=== PATIENT | female | born 1950 | race Caucasian/White ===

== ENCOUNTER 2022-11-21 12:23 | Outpatient (CLI) | payer OTHER, SELFPAY ==
--- NOTE | 2022-11-21 | MM_ITS ---
WS: [id number] BILATERAL 3D TOMOSYNTHESIS DIGITAL SCREENING MAMMOGRAPHY WITH CAD CLINICAL INFORMATION: ANNUAL SCREENING HISTORY: Screening mammogram. No current complaints. COMPARISON: 2020 TECHNIQUE: Bilateral CC and MLO views. FINDINGS: The breasts are composed of heterogeneous fibroglandular density tissue, which can limit the detectio n of small underlying mass lesions. No suspicious mass, asymmetry, calcifications, or architectural d istortion. No evidence of malignancy. Incidental punctate and lucent centered calcifications. Vascula r calcification. IMPRESSION: MM/[place] [id number] BI-RADS: 2-Benign FOLLOW UP: 1 Year Follow-up Recommend return to annual screening mammography.
== END 2022-11-21 12:24 | disposition home or self-care (01) ==
PROVIDERS: PCP Family Medicine; Visit Provider Family Medicine
DX: Z12.31 Encounter for screening mammogram for malignant neoplasm of breast (principal)
CPT/HCPCS: 77063; 77067

== ENCOUNTER 2023-04-07 10:26 | Emergency (ER) | payer MEDICARE, SELFPAY ==
[2023-04-07 11:01] VITALS: BP 104/67; PULSE 66; RESP 12; TEMP 36.5; O2SAT 98; BMI 20.7
[2023-04-07 11:39] VITALS: BP 104/67; PULSE 66; RESP 14; O2SAT 99
--- NOTE | 2023-04-07 11:58 | XRR_ITS ---
PROCEDURE INFORMATION: Exam: XR Lumbosacral Spine Exam date and time: 04/07/2023 12:14 PM Age: 72 years old Clinical indication: Injury or trauma; Patient HX: Upper/lower back/tailbone/rt knee pain post fall; No previous injuries or surg TECHNIQUE: Imaging protocol: Radiologic exam of the lumbosacral spine. Views: 2 or 3 views. COMPARISON: CR XR thoracic spine 3V* [id number] 04/07/2023 12:14 PM FINDINGS: Bones/joints: Compression fracture of T12 vertebral body. Chronic multilevel endplate sclerosis and space disc narrowing most pronounced at L3 through S1. Facet hypertrophy and bony enumeration at L4-L5, and L5-S1 facets. There is normal alignment. Mild degenerative changes of the bilateral hip joints. Soft tissues: Unremarkable. XR/XR lumbar spine 2-3V* [id number] IMPRESSION: 1. Compression fracture of T12 vertebral body. Correlate with point tenderness for acuity. 2. Facet arthropathy of the lower lumbar spine.
--- NOTE | 2023-04-07 11:58 | XRR_ITS ---
PROCEDURE INFORMATION: Exam: XR Thoracic Spine Exam date and time: 04/07/2023 12:14 PM Age: 72 years old Clinical indication: Injury or trauma; Patient HX: Upper/lower back/tailbone/rt knee pain post fall; No previous injuries or surg TECHNIQUE: Imaging protocol: Radiologic exam of the thoracic spine. Views: 3 views. COMPARISON: CR XR lumbar spine 2-3V* [id number] 04/07/2023 12:14 PM FINDINGS: Bones/joints: Compression fracture of T12 vertebral body. Chronic multilevel degenerative changes. Normal alignment. Soft tissues: Unremarkable. XR/XR thoracic spine 3V* [id number] IMPRESSION: Compression fracture of T12 vertebral body.
--- NOTE | 2023-04-07 11:58 | XRR_ITS ---
PROCEDURE INFORMATION: Exam: XR Right Knee Exam date and time: 04/07/2023 12:14 PM Age: 72 years old Clinical indication: Injury or trauma; Patient HX: Upper/lower back/tailbone/rt knee pain post fall; No previous injuries or surg TECHNIQUE: Imaging protocol: Radiologic exam of the right knee. Views: 3 views. COMPARISON: No relevant prior studies available. FINDINGS: Bones/joints: No acute fracture. Mild joint space narrowing in the medial tibiofemoral compartment of the knee. There is subchondral sclerosis, without valgus malalignment Soft tissues: Normal. No joint effusion. XR/XR knee RT 3V* [id number] IMPRESSION: [id number] tricompartmental osteoarthritis of the right knee.
--- NOTE | 2023-04-07 11:58 | CTR_ITS ---
PROCEDURE INFORMATION: Exam: CT Head Without Contrast Exam date and time: 04/07/2023 12:39 PM Age: 72 years old Clinical indication: Injury or trauma; Fall; Blunt trauma (contusions or hematomas); Additional info: Fall/trauma TECHNIQUE: Imaging protocol: Computed tomography of the head without contrast. Radiation optimization: All CT scans at this facility use at least one of these dose optimization techniques: automated exposure control; mA and/or kV adjustment per patient size (includes targeted exams where dose is matched to clinical indication); or iterative reconstruction. COMPARISON: CT cervical spin wo con* [id number] 04/07/2023 12:39 PM RADIATION DOSE METRICS: Total DLP (mGy-cm): 1073.7 FINDINGS: Brain: No hemorrhage, mass effect or brain herniation. Chronic right temporal encephalomalacia with compensatory dilatation of the right ventricular anterior horn. Cerebral ventricles: No ventriculomegaly. Paranasal sinuses: Visualized sinuses are unremarkable. No fluid levels. Mastoid air cells: Visualized mastoid air cells are well aerated. Bones/joints: Unremarkable. No acute fracture. Soft tissues: Unremarkable. CT/CT head wo con* [id number] IMPRESSION: No acute intracranial abnormality.
--- NOTE | 2023-04-07 11:58 | CTR_ITS ---
PROCEDURE INFORMATION: Exam: CT Cervical Spine Without Contrast Exam date and time: 04/07/2023 12:39 PM Age: 72 years old Clinical indication: Injury or trauma; Fall; Blunt trauma; Additional info: Trauma/fall TECHNIQUE: Imaging protocol: Computed tomography of the cervical spine without contrast. Radiation optimization: All CT scans at this facility use at least one of these dose optimization techniques: automated exposure control; mA and/or kV adjustment per patient size (includes targeted exams where dose is matched to clinical indication); or iterative reconstruction. COMPARISON: CT head wo con* [id number] 04/07/2023 12:39 PM RADIATION DOSE METRICS: Total DLP (mGy-cm): 316.2 FINDINGS: Bones/joints: No acute fracture. Normal alignment. No significant disc bulge or herniation. No severe spinal canal stenosis. Chronic marked degenerative disc and facet changes throughout the cervical spine with multilevel foramina compromise. Lungs: Lung apices are normal. Soft tissues: Unremarkable. CT/CT cervical spin wo con* [id number] IMPRESSION: No acute findings.
--- NOTE | 2023-04-07 14:00 | W.ED.FALL ---
HPI - Fall General: Chief Complaint: Fall Stated Complaint: fall, lower back pain Time Seen by Provider: 04/07/23 11:52 History of Present Illness: 72-year-old female presents emergency department with complaints of back pain. She states she was attempting to step up into her pickup truck when she had a accidental slip and fell backwards onto her back. She states she does have a history of having back surgery in her back and states that she has back pain to her lower back and right knee. She rates her back pain is a 5 out of 10 and her right knee pain as a 2 out of 10 and aching. She states that she did not hit her head that she knows of when she fell. She denies loss of consciousness. She denies urinary retention or incontinence or bowel retention or incontinence. She denies paresthesia or paralysis. Review of Systems General: Reports: 10 or more systems reviewed and unremarkable except in HPI and below Musc: Reports: back pain, extremity pain, joint pain and joint stiffness Physical Exam Narrative: EXAM NARRATIVE: Constitutional: the patient appears well nourished and with normal development. Vital signs reviewed as documented. HENMT: Normocephalic, atraumatic. External ears normal appearance without drainage. Nose without drainage, normal appearance. Mucus membranes moist. Neck is supple, No jugular venous distension, trachea is midline, no appreciable carotid bruits. No lymphadenopathy. No meningeal signs. Flexion, extension and lateral rotation is without pain. Eyes: Pupils are equal, round, reactive to light and accommodation. No scleral icterus. Extra-ocular movement are intact. Thorax is symmetrical and with equal rise and fall with respirations. Resp: Lungs are clear to auscultation. No wheezes, rales, crackles or ronchi at present. Cardio: Regular rate and rhythm. Positive S1, S2. No appreciable murmurs, rubs or gallops. GI: Abdominal exam reveals normal bowel sounds to all quadrants. No organomegaly. No obvious palpable masses noted. No hepatomegally appreciated. Soft, non-tender to palpation. Extremity: Extremities are non-edematous and both femoral and pedal pulses are 2+ and equal bilaterally. Moves all extremities well, sensation in all extremities. There is no ballotable edema to the right knee. Neuro: Alert and oriented x4, person, place, time and situation. Cranial nerves II through XII are grossly intact, there is no focal neurological deficits that I can appreciate at present. Motor strength in the upper and lower extremities are equal and bilateral 5/5. Psych: Cooperative, calm, normal thought process, appropriate judgment. Skin: No lesions, rashes. No gross abnormalities noted. Back: Symmetrical, no obvious deformity, No CVA tenderness. No crepitus that I can appreciate at present, no obvious step-offs, she is tender to palpation to the T11-T12 area. Course Vital Signs: Vital signs: Vital Signs Temperature 97.7 F 04/07/23 11:01 Pulse Rate 66 04/07/23 11:39 Respiratory Rate 14 04/07/23 11:39 Blood Pressure 104/67 04/07/23 11:39 Pulse Oximetry 99 04/07/23 11:39 Oxygen Delivery Me thod Room Air 04/07/23 11:39 MDM - Fall Medical Decision Making Physical exam completed and documented given the patient's previous back surgery I will obtain lumbar plain film, thoracic plain film and right knee plain film for evaluation. Given her advanced age and the distance that she fell I will obtain a CT scan of her head and neck to evaluate for intracranial injury. After reviewing the radiographic examination I will provide the patient with Toradol intramuscular injection for her pain control as well as written prescriptions. I did have an extensive discussion with the patient regarding follow-up with her primary care provider and also the orthopedic physician both to discuss potential treatment for her T12 compression fracture. Lab Data Radiology Impressions Cervical Spine CT 04/07/23 11:58 IMPRESSION: No acute findings. Head CT 04/07/23 11:58 IMPRESSION: No acute intracranial abnormality. Knee X-Ray 04/07/23 11:58 IMPRESSION: [id number] tricompartmental osteoarthritis of the right knee. Lumbar Spine X-Ray 04/07/23 11:58 IMPRESSION: 1. Compression fracture of T12 vertebral body. Correlate with point tenderness for acuity. 2. Facet arthropathy of the lower lumbar spine. Thoracic Spine X-Ray 04/07/23 11:58 IMPRESSION: Compression fracture of T12 vertebral body. All radiology interpretation(s) finalized by discharge Discharge Plan Discharge Patient Disposition: Home Clinical Impression: Acute pain of right knee T12 compression fracture Qualifiers: Encounter type: initial encounter Qualified Code(s): S22.080A - Wedge compression fracture of T11-T12 vertebra, initial encounter for closed fracture Accidental fall Qualifiers: Encounter type: initial encounter Qualified Code(s): W19.XXXA - Unspecified fall, initial encounter Osteoarthritis of right knee Qualifiers: Osteoarthritis type: unspecified Qualified Code(s): M17.11 - Unilateral primary osteoarthritis, right knee Condition: Stable Prescriptions: New cyclobenzaprine 10 mg tablet 10 mg PO Q12H Qty: 14 0RF naproxen 500 mg tablet 500 mg PO Q12H PRN (Reason: pain) Qty: 20 0RF No Action clonazepam 0.5 mg tablet 0.5 mg PO Q8H PRN (Reason: anxiety) Qty: 21 0RF Discharge Orders: Discharge ED (Routine); Ordered 04/07/23 Ordered By: Mendoza Felipe Referrals: Arben Yeager MD [Primary Care Provider] - Discharge Diet: Advance as tolerated Discharge Activity: Resume usual activity Patient Instructions: Opioid Safety, Pain Management Activity Restrictions/Additional Instructions: Activity Restrictions/Additional Instructions: Thank you for choosing [facility] for your healthcare needs today. Please realize that you were seen in the Emergency Department and that we are providing you with an emergency medical screening exam and this may not be a complete and all inclusive of all the testing and or medical work-up that you may need to determine your ailment or severity of your illness. It is very important that you follow-up as instructed with your Primary care provider or Specialist for additional evaluation and to discuss your medical treatment plan. You may return to the Emergency Department should you have concerns or if your condition changes or worsens in any way. You have been provided the office contact information for a Specialist Physician that sees patients of all ages and may be able to provide additional evaluation and treatment for your bone and joint pain. [facility] Dr. 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
[2023-04-07] MEDS: ketorolac 60 mg/2 mL INJ IM (14:15)
[2023-04-07 14:36] VITALS: BP 104/67; PULSE 66; RESP 14; TEMP 36.5; O2SAT 99
== END 2023-04-07 14:37 | disposition home or self-care (01) ==
PROVIDERS: Emergency Provider Internal Medicine; PCP Family Medicine
DX: S22.080A Wedge compression fracture of T11-T12 vertebra, initial encounter for closed fracture (principal); M17.11 Unilateral primary osteoarthritis, right knee; W01.0XXA Fall on same level from slipping, tripping and stumbling without subsequent striking against object, initial encounter
CPT/HCPCS: 70450; 72072; 72100; 72125; 73562; 96372; 99284; J1885

== ENCOUNTER 2023-05-14 18:26 | Emergency (ER) | payer MEDICARE, SELFPAY ==
--- NOTE | 2023-05-14 18:27 | XRR_ITS ---
PROCEDURE INFORMATION: Exam: XR Chest Exam date and time: 05/14/2023 7:01 PM Age: 72 years old Clinical indication: Cough and fever; Additional info: Syncope TECHNIQUE: Imaging protocol: Radiologic exam of the chest. Views: 1 view. COMPARISON: CT cervical spin wo con* [id number] 04/07/2023 12:39 PM FINDINGS: Lungs: Unremarkable. No consolidation or mass. Pleural spaces: Unremarkable. No pleural effusion. No pneumothorax. Heart/Mediastinum: Unremarkable. No cardiomegaly. Bones/joints: Unremarkable. XR/XR chest 1V portable [id number] IMPRESSION: No acute findings.
--- NOTE | 2023-05-14 18:27 | ECG_ITS ---
[facility] Test Date: 2023-05-14 Pat Name: Cindi Gonzalez Department: Room: Gender: Female [employer] Hand: : 1950 Requested By: Jonah Zimmer Order Number: [id number] Katrina MD: Prabhjot Pichardo M.D. Measurements Intervals [place] Rate: 66 P: 71 IN: 228 QRS: 56 QRSD: 74 T: 70 QT: 364 QTc: 383 Interpretive Statements SINUS RHYTHM WITH FIRST DEGREE AV BLOCK No previous ECG available for comparison Electronically Signed On 05-14-2023 21:28:27 CDT by Prabhjot Pichardo M.D. [id number]
[2023-05-14 18:43] VITALS: BP 102/68; PULSE 65; RESP 18; TEMP 36.6; O2SAT 99; BMI 21.1
--- NOTE | 2023-05-14 18:56 | ED_ITS ---
HPI - General Adult 2 General: Chief complaint: Upper Respiratory Infection Stated complaint: Flu Like symptoms Time Seen by Provider: 05/14/23 18:29 Source: patient Mode of arrival: ambulatory Limitations: no limitations History of Present Illness: 72-year-old female states for last 2 to 3 days she has had fatigue along with some bodyaches and diaphoresis states she went to go to the bathroom last night and felt nauseous had a syncopal event on the toilet. She denies any chest pain denies any headache denies any diarrhea. Associated symptoms: Reports malaise, nausea and syncope; Deny chest pain, dyspnea, headache(s), rash or vomiting Review of Systems 2 Const: Reports: chills, body aches and malaise; Denies: fever(s) or change in appetite Eyes: Denies: blurry vision or eye discomfort ENMT: Denies: throat pain or dental pain Card: Reports: syncope; Denies: chest pain Resp: Denies: dyspnea GI: Reports: nausea; Denies: abdominal pain, vomiting or diarrhea : Denies: dysuria Musc: Denies: neck pain or back pain Skin/Breast: Denies: rash Neuro: Denies: headache(s) Physical Exam 2 Const: COMMON NORMALS: no acute distress, patient oriented x3 and healthy appearing HENMT: COMMON NORMALS: normocephalic and atraumatic HEAD & SCALP: n ormocephalic and atraumatic Eye: COMMON NORMALS: Equal, round and reactive pupils present and EOMs intact bilaterally PUPIL: Yes Equal, round and reactive pupils present Neck/C-Spine: COMMON NORMALS: full ROM and supple Chest: COMMONS NORMALS: normal inspection of the chest and normal palpation of entire chest wall Resp: COMMON NORMALS: normal respiratory effort, No retractions, No use of accessory muscles and clear to auscultation bilaterally AUSCULTATION: clear to auscultation bilaterally Cardio: COMMON NORMALS: regular rate, regular rhythm and No murmurs present (Cardio) RATE: regular rate RHYTHM: regular rhythm GI: COMMON NORMALS: Normal to inspection, nondistended, normoactive bowel sounds present, Soft to palpation, non-tender and no masses PALPATION: Yes Soft to palpation Extremity: COMMON NORMALS: normal to inspection and full ROM Neuro: COMMON NORMALS: patient oriented x3, moves all extremities and no focal motor deficits Psych: COMMON NORMALS: mental status grossly normal, Normal thought process present and cooperative THOUGHT PROCESS: Normal thought process present Skin: COMMON NORMALS: no rashes or lesions noted and no wounds GENERAL SKIN EXAM: no rashes or lesions noted Course 2 Vital Signs: Vital signs: Vital Signs Temperature 97.8 F 05/14/23 18:43 Pulse Rate 65 05/14/23 18:43 Respiratory Rate 18 05/14/23 18:43 Blood Pressure 102/68 05/14/23 18:43 Pulse Oximetry 99 05/14/23 18:43 MDM - General Adult Medical Decision Making Patient presents here with bodyaches and fatigue she does have a UTI is likely causing her symptoms blood work here is normal white count is normal no signs of severe infection her troponin EKG here are normal as well. X-rays normal we will place her on Keflex she is follow-up with PCP and return if worsening she understands agrees to plan Medical Records I reviewed the patient's medical records. Lab Data I reviewed the patient's lab results. 05/14/23 18:58 05/14/23 18:58 Radiology Impressions Chest X-Ray 05/14/23 18:27 IMPRESSION: No acute findings. Laboratory Results WBC 4.35 10^3/uL (3.29-11.43) 05/14/23 18:58 RBC 4.60 10^6/uL (3.85-5.65) 05/14/23 18:58 Hgb 13.90 g/dL (11.27-16.99) 05/14/23 18:58 Hct 42.2 % (36-47) 05/14/23 18:58 MCV 91.7 fl (85-98) 05/14/23 18:58 MCH 30.2 pg (27-33) 05/14/23 18:58 MCHC 32.9 g/dL (30-55) 05/14/23 18:58 RDW 13.5 % (12.1-15.1) 05/14/23 18:58 Plt Count 253 10^3/cmm (157-399) 05/14/23 18:58 MPV 9.6 fL (7.4-10.4) 05/14/23 18:58 Neut % (Auto) 51.7 % 05/14/23 18:58 Lymph % (Auto) 38.4 % 05/14/23 18:58 [place] % (Auto) 9.0 % 05/14/23 18:58 Eos % (Auto) 0.0 % 05/14/23 18:58 Baso % (Auto) 0.7 % 05/14/23 18:58 Neut # (Auto) 2.25 10^3/uL (1.8-7.7) 05/14/23 18:58 Lymph # (Auto) 1.7 10^3/uL (0.8-4.8) 05/14/23 18:58 [place] # (Auto) 0.4 10^3/uL (0.2-0.9) 05/14/23 18:58 Eos # (Auto) 0.0 10^3/uL (0.0-0.8) 05/14/23 18:58 Baso # (Auto) 0.0 10^3/uL (0.0-0.1) 05/14/23 18:58 Nucleated RBC % (auto) 0 % 05/14/23 18:58 Nucleated RBCs # 0.0 /100WBC 05/14/23 18:58 PT 12.00 SECONDS (12.1-14.9) L 05/14/23 19:48 INR 0.86 (0.8-1.2) 05/14/23 19:48 Sodium 141 mmol/L (136-145) 05/14/23 18:58 Potassium 4.1 mmol/L (3.5-5.1) 05/14/23 18:58 Chloride 102 mmol/L (98-107) 05/14/23 18:58 Carbon Dioxide 27 mmol/L (22-29) 05/14/23 18:58 Anion Gap 16.1 (5-19) 05/14/23 18:58 BUN 14 mg/dL (8-23) 05/14/23 18:58 Creatinine 0.7 mg/dL (0.5-0.9) 05/14/23 18:58 GFR Calculation Not Reportable 05/14/23 18:58 Glucose 97 mg/dL (65-115) 05/14/23 18:58 Calculated Osmolality 292 mOsm/kg (285-295) 05/14/23 18:58 Calcium 10.2 mg/dL (8.5-10.5) 05/14/23 18:58 Total Bilirubin 0.2 mg/dL (0.15-1.2) 05/14/23 18:58 AST 19 U/L (0-32) 05/14/23 18:58 ALT 13 U/L (0-33) 05/14/23 18:58 Alkaline Phosphatase 95 U/L (35-105) 05/14/23 18:58 Troponin T Baseline 7 ng/L (0-10) 05/14/23 18:58 Total Protein 7.2 g/dL (6.6-8.7) 05/14/23 18:58 Albumin 4.7 g/dL (3.5-5.2) 05/14/23 18:58 Globulin 2.5 g/dL (1.3-4.6) 05/14/23 18:58 Lipase 33 U/L (13-60) 05/14/23 18:58 Urine Color Yellow (Yellow) 05/14/23 19:00 Urine Appearance Cloudy (CLEAR) A 05/14/23 19:00 Urine pH 7 (5-7) 05/14/23 19:00 Ur Specific [place] 1.010 (1.005-1.030) 05/14/23 19:00 Urine Protein Neg (Negative) 05/14/23 19:00 Urine Glucose (UA) Norm (Normal) 05/14/23 19:00 Urine Ketones Negative (Negative) 05/14/23 19:00 Urine Blood Neg (Negative) 05/14/23 19:00 Urine Nitrate Positive (Negative) H 05/14/23 19:00 Urine Bilirubin Neg (Negative) 05/14/23 19:00 Urine Urobilinogen Norm mg/dL (Negative) 05/14/23 19:00 Ur Leukocyte Esterase 2+ (Negative) H 05/14/23 19:00 Urine RBC 0-4 /hpf (0-2) H 05/14/23 19:00 Urine WBC 40-55 /hpf (0-5) H 05/14/23 19:00 Ur Squamous Epith Cells 5-10 /hpf (0-5) H 05/14/23 19:00 Ur Transition Epith Cell 0-4 /hpf 05/14/23 19:00 Amorphous Sediment Not Reportable 05/14/23 19:00 Urine Bacteria 3+ /hpf (NONE) H 05/14/23 19:00 Urine Mucus Trace /hpf 05/14/23 19:00 Ur Oval Fat Bodies 1+ /hpf 05/14/23 19:00 Influenza Type A Ag negative (Negative) 05/14/23 19:20 Influenza Type B Ag negative (Negative) 05/14/23 19:20 SARS-CoV-2 Ag (Rapid) negative (Negative) 05/14/23 19:20 All radiology interpretation(s) finalized by discharge EKG Data EKG 1: I personally reviewed and interpreted this EKG as follows: EKG interpretation date: 05/14/23 EKG interpretation time: 18:50 Interpretation: nsr hr [address] or t wave abnormalities qrs 74 qtc 378 Computer generated interpretation: Chest X-Ray 05/14/23 18:27 IMPRESSION: No acute findings. Discharge Plan Discharge Patient Disposition: Home Clinical Impression: Acute cystitis, Syncope Condition: Stable Prescriptions: New cephalexin 500 mg capsule 500 mg PO TID 7 Days Qty: 21 0RF ondansetron 4 mg tablet,disintegrating 4 mg PO Q6H PRN (Reason: nausea and vomiting) Qty: 14 0RF No Action clonazepam 0.5 mg tablet 0.5 mg PO Q8H PRN (Reason: anxiety) Qty: 21 0RF cyclobenzaprine 10 mg tablet 10 mg PO Q12H Qty: 14 0RF naproxen 500 mg tablet 500 mg PO Q12H PRN (Reason: pain) Qty: 20 0RF Discharge Orders: Discharge ED (Routine); Ordered 05/14/23 Ordered By: Jonah Zimmer Referrals: Arben Yeager MD [Primary Care Provider] - 1-3 days Discharge Diet: Advance as tolerated Discharge Activity: Resume usual activity Patient Instructions: Urinary Tract Infection in Women (ED), Syncope (ED) Coding Level of Care 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
[2023-05-14 19:06] LABS: Basophils % 0.7 %; Hematocrit 42.2 % (36-47); Lymphocytes # 1.7 10^3/uL (0.8-4.8); Lymphocytes % 38.4 %; Mean Corpuscular HGB Conc 32.9 g/dL (30-55); Mean Corpuscular Hemoglobin 30.2 pg (27-33); Mean Corpuscular Volume 91.7 fl (85-98); Mean Platelet Volume 9.6 fL (7.4-10.4); Monocytes # 0.4 10^3/uL (0.2-0.9); Neutrophils # 2.25 10^3/uL (1.8-7.7); Neutrophils % 51.7 %; Nucleated Red Blood Cells % 0 %; Platelet Count 253 10^3/cmm (157-399); Red Cell Distribution Width 13.5 % (12.1-15.1); White Blood Count 4.35 10^3/uL (3.29-11.43)
[2023-05-14] MEDS: sodium chloride 0.9% 1,000 ML 999 ML IV (19:17)
[2023-05-14 19:37] LABS: Troponin(5th) Baseline 7 ng/L (0-10)
[2023-05-14 19:39] LABS: Alanine Aminotransferase 13 U/L (0-33); Albumin Level 4.7 g/dL (3.5-5.2); Alkaline Phosphatase 95 U/L (35-105); Anion Gap 16.1 (5-19); Aspartate Amino Transferase 19 U/L (0-32); Blood Urea Nitrogen 14 mg/dL (8-23); Calcium 10.2 mg/dL (8.5-10.5); Carbon Dioxide 27 mmol/L (22-29); Chloride 102 mmol/L (98-107); Creatinine Clr Calc Pharmacy 55.3282; Globulin 2.5 g/dL (1.3-4.6); Glucose 97 mg/dL (65-115); Lipase 33 U/L (13-60); Osmolality Calculated 292 mOsm/kg (285-295); Potassium 4.1 mmol/L (3.5-5.1); Sodium 141 mmol/L (136-145); Total Bilirubin 0.2 mg/dL (0.15-1.2); Total Protein 7.2 g/dL (6.6-8.7)
[2023-05-14 19:48] LABS: Influenza A by IFA negative (Negative); Influenza B by IFA negative (Negative)
[2023-05-14 19:49] LABS: SARS Covid-2 Antigen negative (Negative)
[2023-05-14 20:05] LABS: INR 0.86 (0.8-1.2)
[2023-05-14 20:10] LABS: Add Urine Microscopic? YES; Bilirubin Urine Neg (Negative); Blood Urine Neg (Negative); Glucose Urine UA Norm (Normal); Ketones Urine Negative (Negative); Leukocyte Esterase Urine 2+ (Negative); Nitrate Urine Positive (Negative); Protein Urine Neg (Negative); Urine Appearance Cloudy (CLEAR); Urine Color Yellow (Yellow); Urobilinogen Urine Norm (Negative); pH Urine 7 (5-7)
[2023-05-14 20:13] LABS: RBC Urine 0-4 /hpf (0-2); WBC Urine 40-55 /hpf (0-5)
[2023-05-14 20:14] LABS: Add Urine Culture? Yes; Bacteria Urine 3+ /hpf; Mucus Urine TRACE /hpf; Oval Fat Bodies Urine 1+ /hpf; Transitional Epi Cells Urine 0-4 /hpf
[2023-05-14] MEDS: cefTRIAXone 1,000 MG in sodium chloride 0.9% (plus) 50 ML 100 MG IV (20:30)
[2023-05-14 20:46] VITALS: BP 124/75; PULSE 71; RESP 16; O2SAT 96
[2023-05-14 20:54] VITALS: BP 111/57; PULSE 75; RESP 15; O2SAT 98
== END 2023-05-14 20:58 | disposition home or self-care (01) ==
PROVIDERS: Emergency Provider Emergency Medicine; PCP Family Medicine
DX: R55 Syncope and collapse (principal); N30.00 Acute cystitis without hematuria; Z11.52 Encounter for screening for COVID-19
CPT/HCPCS: 36415; 71045; 80053; 81001; 83690; 84484; 85025; 85610; 87077; 87086; 87186; 87426; 87804; 93005; 96365; 99285; J0696; J7030

== ENCOUNTER 2023-05-21 12:46 | Outpatient (CLI) | payer MEDICARE, SELFPAY ==
--- NOTE | 2023-05-21 12:52 | XR_ITS ---
WS: [id number] SCREENING DEXA SCAN [employer] CLINICAL INFORMATION: COMPRESSION FX OF VERTEBRAL COLUMN COMPARISON: None. FINDINGS: The LEFT forearm bone mineral density measures -0.7. This corresponds to a T score of -0.7 and Z scor e of 1.3. Left femoral neck bone mineral density measures 0.637 g/cm2. This corresponds to a T score of -2.9 an d Z score of -1.1. Right femoral neck bone mineral density measures 0.619 g/cm2. This corresponds to a T score -3.1of an d Z score of -1.3. Mean femoral neck bone mineral density measures 0.628 g/cm2. This corresponds to a T score of -3.0 an d Z score of -1.2. IMPRESSION: Normal bone mineralization LEFT forearm. Osteoporosis femoral necks. Patient's FRAX calculated 10 year probability for major osteoporotic fracture is 33.2% and osteoporot ic hip fracture is 16.4%.
== END 2023-05-21 12:47 | disposition home or self-care (01) ==
LOC: RAD 12:46
PROVIDERS: PCP Family Medicine; Visit Provider Family Medicine
DX: M81.8 Other osteoporosis without current pathological fracture (principal)
CPT/HCPCS: 77080